=== PATIENT | female | born 1940 | race Caucasian/White ===

== ENCOUNTER → 2017-02-10 | Outpatient (CLI) | payer MEDICARE, MEDICAID | LOC: M WUC 08:47 | PROVIDERS: ATTEND Physician Assistant Medical | DX: R56.9 Unspecified convulsions (principal) ==

== ENCOUNTER → 2017-02-10 | Outpatient (CLI) | payer MEDICARE, MEDICAID ==
[2017-02-10 13:05] LABS: ALBUMIN/GLOBULIN RATIO 1.54 (1.00-1.93); BILIRUBIN,TOTAL 0.5 MG/DL (0.2-1.0); CALCIUM LEVEL 9.2 MG/DL (8.8-10.2); CREATININE FOR GFR 1.15 MG/DL (0.55-1.02); GLOMERULAR FILTRATION RATE 48.8 (>39); POTASSIUM SERUM 4.9 MEQ/L (3.5-5.1); TOTAL PROTEIN 6.6 GM/DL (6.4-8.2)
== END ==
LOC: M WUC 08:43
PROVIDERS: ATTEND Physician Assistant
DX: E03.9 Hypothyroidism, unspecified (principal); R56.9 Unspecified convulsions

== ENCOUNTER → 2017-04-25 | Outpatient (CLI) | payer MEDICARE, MEDICAID | LOC: M LAB 07:48 | PROVIDERS: ATTEND Psychiatry & Neurology Psychiatry | DX: Z51.81 Encounter for therapeutic drug level monitoring (principal); Z79.899 Other long term (current) drug therapy ==

== ENCOUNTER → 2017-04-26 | Outpatient (CLI) | payer MEDICARE, MEDICAID ==
[~2017-04-26] MED LIST: ASPI81TA85 PO; ATRO0.063 INH; CALC1CAP PO; CYMB60CA3 PO; DEBR6.5S4 AU; FLUC100T PO; FOSA70TA PO; KEPP1SOL PO; LACT10SO29 PO; NAPR250T45 PO; OMEP40CA2 PO; RISP1TAB42 PO; SYNT88TA2 PO; ZYRT10CA PO
--- NOTE | 2017-04-26 11:24 | REP ---
Clinical: Pain with recent trauma. Technique: Internal rotation, external rotation, and Y view. Findings: Advanced degenerative changes with increased sclerosis and blunting of the glenoid rim is appreciated along with subtle spurring along the inferior margin. The humeral head demonstrates mild subchondral heterogeneity and cystic change. The acromioclavicular joint appears intact and normal for age. The subacromial space is normal. No periarticular calcifications are identified. Impression: Early advanced degenerative changes involving the glenohumeral joint. No acute fracture or dislocation. Signed by Carlos Manuel Paulino MD 04/26/2017 11:16 A
== END ==
LOC: M LRY 10:05
PROVIDERS: ATTEND Family Medicine
DX: M19.012 Primary osteoarthritis, left shoulder (principal); M25.512 Pain in left shoulder; Z51.81 Encounter for therapeutic drug level monitoring; Z79.1 Long term (current) use of non-steroidal anti-inflammatories (NSAID)
CPT/HCPCS: 73030; 80048; G0463

== ENCOUNTER → 2017-04-26 | Outpatient (REF) | payer MEDICARE, MEDICAID ==
[2017-04-26 12:37] LABS: ANION GAP 7 MEQ/L (8-16); BLOOD UREA NITROGEN 20 MG/DL (7-18); CALCIUM LEVEL 8.7 MG/DL (8.8-10.2); CARBON DIOXIDE LEVEL 27 MEQ/L (21-32); CHLORIDE LEVEL 102 MEQ/L (98-107); CREATININE FOR GFR 0.77 MG/DL (0.55-1.02); GLOMERULAR FILTRATION RATE > 60.0 (>39); GLUCOSE, FASTING 81 MG/DL (83-110); SODIUM LEVEL 136 MEQ/L (136-145)
== END ==
LOC: M SFHCLERA 10:03
PROVIDERS: ATTEND Family Medicine
DX: Z79.1 Long term (current) use of non-steroidal anti-inflammatories (NSAID) (principal)

== ENCOUNTER 2017-06-13 09:48 | Outpatient (RCR) | payer MEDICARE, MEDICAID | END 2017-06-29 | disposition home or self-care (01) | LOC: M PT 09:48 | PROVIDERS: ATTEND Family Medicine | DX: Z51.89 Encounter for other specified aftercare (principal); M25.512 Pain in left shoulder | CPT/HCPCS: 97110; 97140; 97162; G8984; G8985 ==

== ENCOUNTER → 2017-06-28 | Outpatient (CLI) | payer MEDICARE, MEDICAID ==
[2017-06-28 08:47] LABS: EOS # 0.4 K/mm3 (0.0-0.50); EOS % 7.1 % (0.0-3.0); LARGE UNSTAINED CELL # 0.1 K/mm3 (0.0-0.4); LARGE UNSTAINED CELL % 1.4 % (0.0-4.0); LYMPH # 1.4 K/mm3 (1.5-4.5); LYMPH % 25.6 % (24.0-44.0); MEAN CORPUSCULAR HEMOGLOBIN 31.4 pg (27.0-33.0); MEAN CORPUSCULAR HGB CONC 32.9 g/dl (32.0-36.5); MEAN CORPUSCULAR VOLUME 95.6 fl (80.0-96.0); MONO # 0.2 K/mm3 (0.0-0.8); MONO % 4.2 % (0.0-5.0); NEUTROPHILS # 3.2 K/mm3 (1.8-7.7); NEUTROPHILS % 60.7 % (36.0-66.0); PLATELET COUNT, AUTOMATED 270 k/mm3 (150-450); RED CELL DISTRIBUTION WIDTH 13.4 % (11.5-14.5); WHITE BLOOD COUNT 5.2 K/mm3 (4.0-10.0)
--- NOTE | 2017-06-28 09:01 | REP ---
CT HEAD WITHOUT CONTRAST: HISTORY: Idiopathic epilepsy. COMPARISON: 04/13/2014 An area of decreased attenuation is present in the right basal ganglia. This represents an old lacunar infarction. Areas of decreased attenuation are present in the periventricular and subcortical white matter. This represents small vessel ischemic disease. There is no intraparenchymal hemorrhage, mass or midline shift. The ventricular system and cortical sulci as well as subarachnoid space in the posterior fossa are dilated consistent with moderate volume loss. There is no extracerebral collection. The visualized sinuses are clear. IMPRESSION: 1. Old right basal ganglia lacunar infarction. 2. Small vessel ischemic disease. 3. Moderate volume loss. Signed by Dwight Moore MD 06/28/2017 09:03 A
[2017-06-28 09:11] LABS: ERYTHROCYTE SEDIMENTATION RATE 6 mm/hr (0-30)
== END ==
LOC: M LAB 07:23 → M RAD 07:23
PROVIDERS: ATTEND Physician Assistant Medical
DX: G40.309 Generalized idiopathic epilepsy and epileptic syndromes, not intractable, without status epilepticus (principal); G31.84 Mild cognitive impairment of uncertain or unknown etiology; R25.8 Other abnormal involuntary movements; R93.0 Abnormal findings on diagnostic imaging of skull and head, not elsewhere classified

== ENCOUNTER 2017-07-22 11:24 | Emergency (ER) | payer MEDICARE, MEDICAID ==
[~2017-07-22] VITALS: Ht 162.6 cm; Wt 70.0 kg
[2017-07-22 11:26] VITALS: BP 118/59
[2017-07-22] MEDS ORDERED: NAPR250T45 PO (11:40)
[2017-07-22] MEDS ORDERED: DEBR6.5S4 AU (11:40)
[2017-07-22] MEDS ORDERED: KEPP1SOL PO (11:40)
[2017-07-22] MEDS ORDERED: LACT10SO29 PO (11:40)
[2017-07-22] MEDS ORDERED: ATRO0.063 INH (11:40)
[2017-07-22] MEDS ORDERED: OMEP40CA2 PO (11:40)
[2017-07-22] MEDS ORDERED: ASPI81TA85 PO (11:40)
[2017-07-22] MEDS ORDERED: CYMB60CA3 PO (11:40)
[2017-07-22] MEDS ORDERED: FOSA70TA PO (11:40)
[2017-07-22] MEDS ORDERED: CALC1CAP PO (11:40)
[2017-07-22] MEDS ORDERED: SYNT88TA2 PO (11:40)
[2017-07-22] MEDS ORDERED: ZYRT10CA PO (11:40)
[2017-07-22] MEDS ORDERED: RISP1TAB42 PO (11:40)
[2017-07-22] MEDS ORDERED: FLUC100T PO (11:40)
[2017-07-22] MEDS ORDERED: ACETAMINOPHEN 325 MG TAB As Ordered ONE (12:24)
[2017-07-22] MEDS ORDERED: ACETAMINOPHEN 325 MG TAB PO ONE (12:30)
--- NOTE | 2017-07-22 14:02 | REP ---
CT BRAIN WITHOUT CONTRAST: CT brain is performed without IV contrast. There is moderate atrophy. There is no midline shift. There are patchy periventricular chronic small vessel ischemic changes. There is no acute hemorrhage or extra-axial fluid collection. No mass effect is seen. There is no skull fracture. There are mild vascular calcifications in the carotid siphons. IMPRESSION: Chronic changes. No acute bleed or fracture. Signed by Fran Mckee MD 07/22/2017 07:40 P
--- NOTE | 2017-07-22 14:06 | REP ---
CT CERVICAL SPINE: CT cervical spine performed in the axial plane with sagittal and coronal reconstruction images. There is no compression fracture. There is no prevertebral soft tissue swelling. There is spurring of C5 through C7 with moderate intervening disc space narrowing. There is mild anterior listhesis of C4 on C5. These findings are stable compared to the prior CT of 05/13/2011. Posterior facet degenerative changes are seen diffusely with narrowing, subchondral sclerosis and cystic changes and spurring. These changes are seen most significantly at C3-4 and C4-5 facet joints. IMPRESSION: Degenerative changes. No evidence of acute fracture or dislocation. Signed by Fran Mckee MD 07/22/2017 07:40 P
--- NOTE | 2017-07-22 14:09 | REP ---
CT MAXILLOFACIAL BONES: CT maxillofacial bones performed in the axial plane with sagittal and coronal reconstruction images. COMPARISON: 05/13/2011 An old nasal bone fracture is again seen. No acute fracture is seen of the facial bones. Zygomatic arches are intact. A tiny amount of fluid is seen in the sphenoid sinus. Globes are intact. IMPRESSION: Old nasal bone fracture. No acute maxillofacial bone fracture seen. Tiny amount of fluid in the sphenoid sinus. Signed by Fran Mckee MD 07/22/2017 07:40 P
== END 2017-07-22 13:45 | disposition home or self-care (01) ==
LOC: M ED 11:24
DX: S01.512A Laceration without foreign body of oral cavity, initial encounter (principal); S00.33XA Contusion of nose, initial encounter; W05.0XXA Fall from non-moving wheelchair, initial encounter; Y92.199 Unspecified place in other specified residential institution as the place of occurrence of the external cause; Y93.9 Activity, unspecified; Y99.9 Unspecified external cause status; R56.9 Unspecified convulsions; F43.10 Post-traumatic stress disorder, unspecified; M51.9 Unspecified thoracic, thoracolumbar and lumbosacral intervertebral disc disorder; Z79.82 Long term (current) use of aspirin; Z79.899 Other long term (current) drug therapy; Z88.1 Allergy status to other antibiotic agents

== ENCOUNTER → 2017-08-12 | Outpatient (CLI) | payer MEDICARE, MEDICAID | LOC: M WUC 13:39 | PROVIDERS: ATTEND Family Medicine | DX: E03.9 Hypothyroidism, unspecified (principal) ==

== ENCOUNTER → 2017-09-06 | Outpatient (CLI) | payer MEDICARE, MEDICAID ==
--- NOTE | 2017-09-06 13:11 | REPMRS ---
Patient History The patient states she had a clinical breast exam in 08/2017. Patient is postmenopausal and is nulliparous. Benign stereotatic breast biopsy of the right breast, 2008. Digital Woman Screen Mammo: September 06, 2017 - Exam #: [id number] Bilateral CC and MLO view(s) were taken. Technologist: Lady Roque, Technologist Prior study comparison: June 03, 2016, digital woman screen mammo performed at [facility]. June 02, 2015, digital woman screen mammo performed at [facility]. May 27, 2014, digital woman screen mammo performed at [facility]. FINDINGS: There are scattered fibroglandular densities. There is a needle biopsy marker clip adjacent to a stable nodule in the superior medial quadrant of the right breast as before. There is a moderate amount of residual fibroglandular tissue which is fairly symmetric. There is no interval development of dominant mass, architectural distortion, or clustered microcalcification typical of malignancy. There has been no change in the appearance of the mammogram from the prior studies. ASSESSMENT: BI-RADS/ACR category 2 mammogram. Benign finding(s). Recommendation Routine screening mammogram of both breasts in 1 year (for women over age 40). This mammogram was interpreted with the aid of an FDA-approved computer-aided dectection system. Electronically Signed By: Frank Juarez MD 09/06/17 2004
== END ==
LOC: M WHC 10:15
PROVIDERS: ATTEND Nurse Practitioner Family
DX: Z12.31 Encounter for screening mammogram for malignant neoplasm of breast (principal); Z78.0 Asymptomatic menopausal state; Z92.89 Personal history of other medical treatment
CPT/HCPCS: G0202; G0463

== ENCOUNTER 2017-09-26 09:48 | Outpatient (RCR) | payer MEDICARE, MEDICAID | END 2017-09-28 | LOC: M PT 09:48 | PROVIDERS: ATTEND Family Medicine | DX: Z51.89 Encounter for other specified aftercare (principal); M25.511 Pain in right shoulder | CPT/HCPCS: 97140; 97162; G8984; G8985 ==

== ENCOUNTER 2017-10-03 09:51 | Outpatient (RCR) | payer MEDICARE, MEDICAID | END 2017-10-29 | LOC: M PT 09:51 | DX: Z51.89 Encounter for other specified aftercare (principal); M25.511 Pain in right shoulder | CPT/HCPCS: 97140 ==

== ENCOUNTER → 2017-10-11 | Outpatient (CLI) | payer MEDICARE, MEDICAID | LOC: M WUC 09:13 | PROVIDERS: ATTEND Family Medicine | DX: E03.9 Hypothyroidism, unspecified (principal) ==

== ENCOUNTER → 2017-11-02 | Outpatient (REF) | payer MEDICARE, MEDICAID ==
[2017-11-02 17:09] LABS: ALBUMIN 3.6 GM/DL (3.2-5.2); ALBUMIN/GLOBULIN RATIO 1.29 (1.00-1.93); ALKALINE PHOSPHATASE 146 U/L (45-117); ALT/SGPT 25 U/L (12-78); ANION GAP 6 MEQ/L (8-16); AST/SGOT 18 U/L (7-37); BILIRUBIN,TOTAL 0.3 MG/DL (0.2-1.0); BLOOD UREA NITROGEN 20 MG/DL (7-18); CALCIUM LEVEL 8.8 MG/DL (8.8-10.2); CARBON DIOXIDE LEVEL 31 MEQ/L (21-32); CHLORIDE LEVEL 105 MEQ/L (98-107); CREATININE FOR GFR 0.71 MG/DL (0.55-1.02); GLOMERULAR FILTRATION RATE > 60.0 (>39); GLUCOSE, FASTING 79 MG/DL (83-110); POTASSIUM SERUM 4.4 MEQ/L (3.5-5.1); SODIUM LEVEL 142 MEQ/L (136-145); TOTAL PROTEIN 6.4 GM/DL (6.4-8.2)
[2017-11-02 17:21] LABS: BASO # 0.1 10^3/uL (0.0-0.2); EOS # 0.2 10^3/uL (0.0-0.50); EOS % 3.6 % (0.0-3.0); HEMATOCRIT 36.4 % (36.0-47.0); HEMOGLOBIN 11.7 g/dl (12.0-16.0); IMMATURE GRANULOCYTE % 0.6 % (0-0); LYMPH # 1.2 10^3/uL (1.5-4.5); LYMPH % 23.7 % (24.0-44.0); MEAN CORPUSCULAR HEMOGLOBIN 30.5 pg (27.0-33.0); MEAN CORPUSCULAR HGB CONC 32.1 g/dl (32.0-36.5); MONO # 0.4 10^3/uL (0.0-0.8); MONO % 8.2 % (0.0-5.0); NEUTROPHILS # 3.1 10^3/uL (1.8-7.7); NEUTROPHILS % 62.9 % (36.0-66.0); PLATELET COUNT, AUTOMATED 268 10^3/uL (150-450); RED BLOOD COUNT 3.83 10^6/uL (4.00-5.40); RED CELL DISTRIBUTION WIDTH 12.9 % (11.5-14.5)
[2017-11-02 20:48] LABS: TOTAL 25(OH) VITAMIN D 51.6 NG/ML (30.0-100.0)
== END ==
LOC: M SFHCLERA 13:54
DX: R53.83 Other fatigue (principal); M81.0 Age-related osteoporosis without current pathological fracture; M19.019 Primary osteoarthritis, unspecified shoulder
CPT/HCPCS: 80053

== ENCOUNTER → 2018-01-16 | Outpatient (CLI) | payer MEDICARE, MEDICAID | LOC: M LRY 11:26 | DX: R56.9 Unspecified convulsions (principal) | CPT/HCPCS: 36415 ==

== ENCOUNTER → 2018-04-02 | Outpatient (CLI) | payer MEDICARE, MEDICAID ==
[2018-04-02 09:34] LABS: CHOLESTEROL LEVEL 184 MG/DL (<200); CHOLESTEROL RISK RATIO 3.118 (<5); GLUCOSE, FASTING 91 MG/DL (70-100); HDL CHOLESTEROL 59 MG/DL (>40); LDL CHOLESTEROL 106.6 MG/DL (<100); NON-HDL-C 125 MG/DL; TRIGLYCERIDES LEVEL 92 MG/DL (<150)
== END ==
LOC: M WUC 08:09
DX: Z79.899 Other long term (current) drug therapy (principal)
CPT/HCPCS: 82947

== ENCOUNTER → 2018-05-01 | Outpatient (CLI) | payer MEDICARE, MEDICAID ==
[2018-05-01 09:05] LABS: BASO % 0.9 % (0.0-1.0); EOS # 0.2 10^3/uL (0.0-0.50); EOS % 5.1 % (0.0-3.0); HEMOGLOBIN 12.3 g/dl (12.0-15.5); IMMATURE GRANULOCYTE % 0.5 % (0-3.0); LYMPH # 1.2 10^3/uL (1.5-4.5); LYMPH % 28.5 % (24.0-44.0); MEAN CORPUSCULAR HEMOGLOBIN 31.3 pg (27.0-33.0); MEAN CORPUSCULAR HGB CONC 33.2 g/dl (32.0-36.5); MEAN CORPUSCULAR VOLUME 94.1 fl (80.0-96.0); MONO # 0.3 10^3/uL (0.0-0.8); MONO % 7.9 % (0.0-5.0); NEUTROPHILS # 2.5 10^3/uL (1.8-7.7); NEUTROPHILS % 57.1 % (36.0-66.0); PLATELET COUNT, AUTOMATED 267 10^3/uL (150-450); RED BLOOD COUNT 3.93 10^6/uL (4.00-5.40); RED CELL DISTRIBUTION WIDTH 13.2 % (11.5-14.5); WHITE BLOOD COUNT 4.3 10^3/uL (4.0-10.0)
[2018-05-01 09:25] LABS: AMMONIA < 10 uMOL/L (<32)
[2018-05-01 09:33] LABS: TOTAL 25(OH) VITAMIN D 46.1 NG/ML (30.0-100.0)
[2018-05-01 09:34] LABS: FOLATE > 24.0 NG/ML; VITAMIN B12 LEVEL 737 PG/ML
[2018-05-01 09:39] LABS: ALBUMIN 3.9 GM/DL (3.2-5.2); ALKALINE PHOSPHATASE 137 U/L (45-117); ALT/SGPT 19 U/L (12-78); ANION GAP 10 MEQ/L (8-16); AST/SGOT 14 U/L (7-37); BILIRUBIN,TOTAL 0.4 MG/DL (0.2-1.0); BLOOD UREA NITROGEN 18 MG/DL (7-18); CARBON DIOXIDE LEVEL 29 MEQ/L (21-32); CHLORIDE LEVEL 104 MEQ/L (98-107); CREATININE FOR GFR 0.77 MG/DL (0.55-1.30); GLOMERULAR FILTRATION RATE > 60.0 (>39); GLUCOSE, FASTING 93 MG/DL (70-100); POTASSIUM SERUM 4.1 MEQ/L (3.5-5.1); SODIUM LEVEL 143 MEQ/L (136-145); TOTAL PROTEIN 6.5 GM/DL (6.4-8.2)
[2018-05-04 11:11] LABS: LEVETIRACETAM (KEPPRA) 23.6 ug/mL (10.0-40.0)
== END ==
LOC: M LAB 08:33
DX: R56.9 Unspecified convulsions (principal); R53.83 Other fatigue; R53.1 Weakness; Z79.899 Other long term (current) drug therapy
CPT/HCPCS: 82140

== ENCOUNTER 2018-06-05 10:50 | Outpatient (CLI) | payer MEDICARE, MEDICAID ==
[2018-06-05] MEDS ORDERED: MIDAZOLAM INJ 2 MG/2 ML VIAL (J2250) As Ordered (11:27)
[2018-06-05] MEDS ORDERED: LR 1,000 ML IV (12:30)
[2018-06-05] MEDS ORDERED: ONDANSETRON 4MG/2ML VIAL (J2405) IV (12:30)
== END 2018-06-05 12:56 | disposition home or self-care (01) ==
LOC: M SDC 10:50
DX: G31.9 Degenerative disease of nervous system, unspecified (principal); I67.81 Acute cerebrovascular insufficiency; G40.309 Generalized idiopathic epilepsy and epileptic syndromes, not intractable, without status epilepticus; R25.8 Other abnormal involuntary movements; R26.81 Unsteadiness on feet; M81.0 Age-related osteoporosis without current pathological fracture; K21.9 Gastro-esophageal reflux disease without esophagitis; M19.90 Unspecified osteoarthritis, unspecified site; E03.9 Hypothyroidism, unspecified; F79 Unspecified intellectual disabilities; F33.9 Major depressive disorder, recurrent, unspecified; F41.9 Anxiety disorder, unspecified; Z79.82 Long term (current) use of aspirin; Z79.899 Other long term (current) drug therapy; Z79.890 Hormone replacement therapy; Z88.1 Allergy status to other antibiotic agents; Z88.8 Allergy status to other drugs, medicaments and biological substances; Z98.890 Other specified postprocedural states; Z86.73 Personal history of transient ischemic attack (TIA), and cerebral infarction without residual deficits
CPT/HCPCS: 99156

== ENCOUNTER → 2018-06-14 | Outpatient (CLI) | payer MEDICARE, MEDICAID | LOC: M RAD 08:08 | DX: M51.34 Other intervertebral disc degeneration, thoracic region (principal); M51.36 Other intervertebral disc degeneration, lumbar region; M41.86 Other forms of scoliosis, lumbar region | CPT/HCPCS: 72072 ==

== ENCOUNTER 2018-06-19 09:02 | Outpatient (RCR) | payer MEDICARE, MEDICAID | END 2018-06-29 | LOC: M PT 09:02 | DX: Z51.89 Encounter for other specified aftercare (principal); M54.6 Pain in thoracic spine; M54.5 Low back pain | CPT/HCPCS: 97110 ==

== ENCOUNTER 2018-07-05 10:39 | Outpatient (RCR) | payer MEDICARE, MEDICAID | END 2018-07-29 | LOC: M PT 10:39 | DX: Z51.89 Encounter for other specified aftercare (principal); M54.5 Low back pain; M54.6 Pain in thoracic spine | CPT/HCPCS: 97110 ==

== ENCOUNTER 2018-09-17 07:52 | Emergency (ER) | payer MEDICARE, MEDICAID ==
[~2018-09-17] VITALS: Ht 162.6 cm; Wt 70.0 kg
[~2018-09-17 07:52] MED LIST changes: +ACET-683 PO; +INGR40CA PO; +MULT1TAB8 PO; -NAPR250T45 PO; +NAPR250T82 PO
[2018-09-17 08:48] LABS: BASO % 0.6 % (0.0-1.0); EOS # 0.2 10^3/uL (0.0-0.50); EOS % 2.8 % (0.0-3.0); HEMATOCRIT 38.8 % (36.0-47.0); HEMOGLOBIN 12.5 g/dl (12.0-15.5); LYMPH % 18.9 % (24.0-44.0); MEAN CORPUSCULAR HEMOGLOBIN 30.7 pg (27.0-33.0); MEAN CORPUSCULAR HGB CONC 32.2 g/dl (32.0-36.5); MEAN CORPUSCULAR VOLUME 95.3 fl (80.0-96.0); MONO # 0.4 10^3/uL (0.0-0.8); MONO % 6.7 % (0.0-5.0); NEUTROPHILS # 3.8 10^3/uL (1.8-7.7); NEUTROPHILS % 70.8 % (36.0-66.0); PLATELET COUNT, AUTOMATED 227 10^3/uL (150-450); RED BLOOD COUNT 4.07 10^6/uL (4.00-5.40); WHITE BLOOD COUNT 5.3 10^3/uL (4.0-10.0)
[2018-09-17 08:59] LABS: INR 1.06
[2018-09-17 09:17] LABS: BLOOD UREA NITROGEN 16 MG/DL (7-18); CALCIUM LEVEL 9.2 MG/DL (8.8-10.2); CARBON DIOXIDE LEVEL 26 MEQ/L (21-32); CHLORIDE LEVEL 107 MEQ/L (98-107); CPK CREATINE PHOSPHOKINASE 48 U/L (26-192); CREATININE FOR GFR 1.05 MG/DL (0.55-1.30); FREE T4 1.26 NG/DL (0.76-1.46); GLUCOSE, FASTING 129 MG/DL (70-100); MAGNESIUM LEVEL 2.2 MG/DL (1.8-2.4); POTASSIUM SERUM 4.3 MEQ/L (3.5-5.1); SODIUM LEVEL 139 MEQ/L (136-145); THYROID STIMULATING HORMONE 0.768 uIU/ML (0.358-3.740); TROPONIN I < 0.02 NG/ML (< 0.10)
--- NOTE | 2018-09-17 09:23 | REP ---
Clinical: Syncope. Comparison: 07/22/2017 . Findings: Age-related atrophy and microvascular ischemic changes are appreciated. The ventricles and sulci are symmetric. Mckee-white differentiation is maintained. There is no evidence for acute intracranial hemorrhage, mass/mass effect, pathology or infarction. No extra-axial fluid collection. Calvarium is intact. Paranasal sinuses and mastoid air cells are clear. Impression: Age related atrophy and microvascular ischemic changes. No acute intracranial hemorrhage, infarction, or mass/mass effect. Electronically Signed by Carlos Manuel Paulino MD 09/17/2018 09:14 A
--- NOTE | 2018-09-17 09:26 | REP ---
Clinical: Syncope/near-syncopal episode . Comparison: 04/12/2016 . Findings: The mediastinum and cardiac silhouette are stable and within normal limits for portable technique. The lung thorpe are clear without acute consolidation, effusion, or pneumothorax. Skeletal structures are intact. Impression: No acute cardiopulmonary process appreciated. Electronically Signed by Carlos Manuel Paulino MD 09/17/2018 09:17 A
--- NOTE | 2018-09-17 09:56 | ED PDOC ---
Post-Departure Follow-Up dr winn faxed formal report of cxr for fu Nikky Jackson MD Sep 17, 2018 09:56
[2018-09-17 15:10] LABS: CPK CREATINE PHOSPHOKINASE 43 U/L (26-192); MB/CK RELATIVE INDEX 3.26 (< OR =4); TROPONIN I < 0.02 NG/ML (< 0.10)
[2018-09-17 15:28] VITALS: BP 135/87
--- NOTE | 2018-09-17 15:58 | ECGEPIP ---
Stationary ECG Study [facility] - ED Test Date: 2018-09-17 Pat Name: RADHA ROCHA Department: Room: - Gender: F Foxer: : 1940 Requested By: Lorenza Salter Order Number: [id number] Reading MD: Jose Ramon Foreman Measurements Intervals [place] Rate: 52 P: 64 [place]: 175 QRS: 14 QRSD: 78 T: 40 QT: 376 QTc: 352 Interpretive Statements SINUS BRADYCARDIA NSTTW ABNORMALITIES SIMILAR TO 03/24/14 Electronically Signed On 09-17-2018 15:58:32 EST by Jose Ramon Foreman
--- NOTE | 2018-09-17 16:03 | ECGEPIP ---
Stationary ECG Study [facility] - ED Test Date: 2018-09-17 Pat Name: RADHA ROCHA Department: Room: - Gender: F Floor Clerk: : 1940 Requested By: Lorenza Salter Order Number: [id number] Reading MD: Jose Ramon Foreman Measurements Intervals [place] Rate: 64 P: 66 MO: 160 QRS: 38 QRSD: 86 T: 57 QT: 358 QTc: 372 Interpretive Statements SINUS RHYTHM NSTTW ABNORMALITIES SIMILAR TO PRIOR ON SAME DATE Electronically Signed On 09-17-2018 16:03:27 EST by Jose Ramon Foreman
== END 2018-09-17 15:31 | disposition home or self-care (01) ==
LOC: M ED 07:52 → EDBD 07:52 → M ED 15:31
DX: R55 Syncope and collapse (principal); E07.9 Disorder of thyroid, unspecified; Z86.718 Personal history of other venous thrombosis and embolism; Z87.891 Personal history of nicotine dependence

== ENCOUNTER → 2018-09-27 | Outpatient (CLI) | payer MEDICARE, MEDICAID ==
[2018-10-01 14:10] LABS: LEVETIRACETAM (KEPPRA) 41.2 ug/mL (10.0-40.0)
== END ==
LOC: M LRY 09:57
DX: R56.9 Unspecified convulsions (principal); Z51.81 Encounter for therapeutic drug level monitoring; Z79.899 Other long term (current) drug therapy
CPT/HCPCS: 80180

== ENCOUNTER → 2018-09-27 | Outpatient (REF) | payer MEDICARE, MEDICAID | LOC: M SFHCLERA 09:43 | DX: E03.9 Hypothyroidism, unspecified (principal) | CPT/HCPCS: 84443 ==

== ENCOUNTER → 2018-11-09 | Outpatient (CLI) | payer MEDICARE, MEDICAID ==
--- NOTE | 2018-11-27 02:19 | ECWPNPC ---
PATIENT NAME: RADHA ROCHA : 1940 GENDER: FEMALE VISIT DATE: 11/09/2018 DISCHARGE DATE: 11/09/18 1210 VISIT LOCKED DATE TIME: PHYSICIAN: RJ GARZA MD RESOURCE: RJ GARZA MD REASON FOR APPOINTMENT 1. BILAT SHOULDER PAIN HISTORY OF PRESENT ILLNESS FALL RISK SCREENING: SCREENING :NO FALLS IN THE PAST YEAR PAIN SCREENING: PATIENT HAS A COMPLAINT OF ACUTE OR CHRONIC PAIN :YES 78 YEAR OLD FEMALE PATIENT WITH A HISTORY OF CHRONIC THORACIC PAIN. THE PATIENT DESCRIBES THE PAIN ACHING AND CONTINUOUS WITH A PAIN SCORE OF 5-8/10 DEPENDING ON PHYSICAL ACTIVITY. THE PATIENT SAYS HER PAIN IS LOCATED MAINLY BETWEEN HER SHOULDER BLADES. THE PATIENT SAYS SHE HAS HAD THIS PAIN FOR MANY YEARS AND IT HAS WORSENED OVER TIME. THE PATIENT IS CURRENTLY A RESIDENT AT [facility]. PATIENT DENIES UNEXPLAINABLE WEIGHT LOSS, FEVER, CHILLS, NEW CHANGES ON HER URINARY OR BOWEL CONTROL. CURRENT MEDICATIONS TAKING MULTIVITAMINS 1 TABLET 1 TABLET ORALLY ONCE A DAY TAKING OXYGEN DIRECTED NASAL CANNULA NIGHTLY AND NEEDED TAKING TAB-A-BETTINA - TABLET TAKE ONE TABLET BY MOUTH ONCE DAILY ORALLY ONCE A DAY TAKING OXYGEN 2L NASAL CANNULA WHEN SLEEPING AND WITH AMBULATION DX:J44.9 TAKING DEBROX 6.5 % SOLUTION 4 GTT IN EACH EAR ONCE A MONTH FOR 3 NIGHTS IN A ROW TAKING MEDICAL COMPRESSION STOCKINGS - MISCELLANEOUS DIRECTED _ DAILY. 10-20MM TAKING CALCIUM ACETATE 668 (169 CA) MG TABLET 1 TABLET ORALLY TWICE A DAY TAKING WHEELCHAIR - MISCELLANEOUS MOLDED WHEELCHAIR PER THERAPIST SPECIFICATIONS DX CODES F70, M51.36, M81.0, M19.90, J44.9 TAKING FLUCONAZOLE 100 MG TABLET 2 TABLETS ORALLY ONCE A WEEK TAKING OXYGEN 2L VIA NASAL CANNULA AT NIGHT TAKING INGREZZA 40 MG CAPSULE 2 CAPS ORALLY ONCE A DAY TAKING CYMBALTA 60MG CAPSULE DELAYED RELEASE PARTICLES 1 CAPSULE ORALLY TWICE A DAY TAKING RISPERDAL 2 MG TABLET 1/2 TAB IN AM, 1 TAB AT BEDTIME ORALLY TAKING KEPPRA 100 MG/ML SOLUTION 5 ML ORALLY TWICE A DAY TAKING ZYRTEC 10 MG TABLET 1 TABLET ORALLY ONCE A DAY PRN FOR SNEEZING/CONGESTION TAKING LACTULOSE 10 GM/15ML SYRUP 15 ML ORALLY ONCE A DAY TAKING LEVOTHYROXINE SODIUM 88 MCG TABLET 1 TABLET ORALLY ONCE A DAY TAKING ASPIRIN 81 MG TABLET CHEWABLE 1 TABLET ORALLY ONCE A DAY TAKING TYLENOL 8 HOUR ARTHRITIS PAIN 650 MG TABLET EXTENDED RELEASE 1 TABLET ORALLY BID TAKING NAPROXEN 125 MG/5ML SUSPENSION 10 ML WITH FOOD OR MILK ORALLY TWICE A DAY MEDICATION LIST REVIEWED AND RECONCILED WITH THE PATIENT PAST MEDICAL HISTORY HYPOTHYROIDISM OSTEOPOROSIS MENTAL RETARDATION HALLUX VALGUS, RIGHT FOOT DEPRESSION/ANXIETY PASSIVE-AGGRESSIVE PERSONALITY DO DEGENERATIVE DISC DISEASE ARTHRITIS HX. OF DVT FX. RIGHT ANKLE/LEG-2013 ALLERGIES KEFLEX: HIVES: ALLERGY IBUPROFEN SURGICAL HISTORY THYROIDECTOMY BUNIONECTOMY/RIGHT 2007 BREAST BIOPSY/RIGHT/BENIGN FIBROADENOMA 2008 DENTAL EXTRACTIONS 07/06,09/05 FAMILY HISTORY NONCONTRIBUTORY. SOCIAL HISTORY GENERAL: TOBACCO USE ARE YOU A:: FORMER SMOKER , HOW LONG HAS IT BEEN SINCE YOU LAST SMOKED?: > 10 YEARS. LUNG CANCER SCREENING SMOKING STATUS:FORMER SMOKER IS THE PATIENT BETWEEN THE AGE OF 55 AND 77?YES HAVE YOU QUIT SMOKING WITHIN THE PAST 15 YEARS?YES HAS THE PATIENT EVER BEEN DIAGNOSED WITH LUNG CANCER?NO BMI CARE GOAL FOLLOW-UP ABOVE NORMAL BMI FOLLOW-UPDIETARY MANAGEMENT EDUCATION, GUIDANCE, AND COUNSELING ALCOHOL SCREENING DID YOU HAVE A DRINK CONTAINING ALCOHOL IN THE PAST YEAR?NO POINTS0 INTERPRETATIONNEGATIVE RECREATIONAL DRUG USE DRUG USE?NO CAFFEINE CAFFEINE USE?YES HOW OFTEN AND HOW MUCH? ONE CUP A DAY SEXUAL HX HAD SEX IN THE LAST 12 MONTHS (VAGINAL, ORAL, OR ANAL)?NO HAVE YOU EVER HAD AN STD?NO HIV / HEP-C SCREENING HIV TEST OFFERED TO PATIENT:NO HEP-C TEST OFFERED TO PATIENT:NO MORAVIAN [id number] NONE LANGUAGE LANGUAGES SPOKEN:QATARI LEARNING BARRIERS / SPECIAL NEEDS CHANGE FROM LAST VISIT?NO RADHA WILL COME TO APPOINTMENTS WITH [facility] STAFF BARRIERS TO LEARNING?YES HEARING IMPAIRED?NO VISION IMPAIRED?YES :CORRECTIVE LENSES COGNITIVELY IMPAIRED?YES READINESS TO LEARN?NO COMMENTSDOCUMENTED IN NOTES SECTION> LEARNING PREFERENCES?NO LEARNING CAPABILITIES PRESENT?NO EMOTIONAL BARRIERS?NO SPECIAL DEVICES?YES :WHEELCHAIR, OTHER VACUUM WORKER NEEDED?NO DIET: REGULAR. EXERCISE: NO REGULAR EXERCISE. MARITAL STATUS: SINGLE. PAIN CLINIC PFS, CLERGY, PUBLIC HEALTH REFERRALS HAS THE PATIENT BEEN EDUCATED REGARDING HIS/HER PLAN OF CARE?YES HAS THE PATIENT BEEN EDUCATED REGARDING PAIN, THE RISK FOR PAIN, THE IMPORTANCE OF EFFECTIVE PAIN MANAGEMENT, AND THE PAIN ASSESSMENT PROCESS?YES ADVANCE DIRECTIVE ADVANCE DIRECTIVE DISCUSSED WITH PATIENT:YES HAROON [place] BHAVESH BYRD REVIEWED WITH PT 11/09/18 1103 BV. HOSPITALIZATION/MAJOR DIAGNOSTIC PROCEDURE SURGERIES ABOVE REVIEW OF SYSTEMS REVIEWED BY: PROVIDER: RJ GARZA MD . CONSTITUTIONAL: ANY CHANGE IN YOUR MEDICAL CONDITION? NO . CHILLS NO . FEVER NO . INFECTION: DO YOU HAVE NEW INFECTIONS? NO . DO YOU HAVE HISTORY OF MRSA? NO . MUSCULOSKELETAL: ANY NEW PATTERNS OF PAIN OR NUMBNESS? NO . SYTEMIC LUPUS NO . GASTROENTEROLOGY: ANY NEW CHANGE IN BOWEL CONTROL? NO . BARRETTS ESOPHAGUS NO . CIRRHOSIS NO . HEPATITIS NO . LIVER FAILURE NO . ACID REFLUX NO . UNEXPLAINED WEIGHT LOSS NO . GENITOURINARY: ANY NEW CHANGE IN BLADDER CONTROL? NO . IS THERE A CHANCE YOU COULD BE ? NO . HEMATOLOGY/LYMPH: DO YOU TAKE ANY BLOOD THINNERS? (FOR EXAMPLE- COUMADIN, PLAVIX, AGGRENOX, PLATEL, PRADAXA, OR XARELTO) NO . WHEN WAS YOUR LAST DOSE? DATE: TIME: . LOW PLATELET COUNT NO . SICKLE CELL DISEASE NO . VON WILLIEBRANDS NO . FACTOR V LEIDEN NO . THALLASEMIA NO . ANEMIA NO . EASY BRUISING NO . NEUROLOGY: HAVE YOU FALLEN IN THE PAST 6 MONTHS? YES, PT IS UNABLE TO WALK. SHE HAS HAD 2 FALLS IN THE PAST 6 MONTHS DUE TO PT TRYING TO GET UP FROM HER WHEELCHAIR ALONE. NO INJURIES REPORTED. . ANY NEW EXTREMITY NUMBNESS OR WEAKNESS? NO . HEAD INJURY NO . DEMENTIA NO . CEREBRAL PALSY NO . MULTIPLE SCLEROSIS NO . DIZZINESS NO . HEADACHE NO . STROKES NO . VERTIGO NO . CARDIOLOGY: DO YOU HAVE A PACEMAKER OR DEFIBRILLATOR? NO . ANGINA NO . HEART ATTACK NO . HEART SURGERY NO . CONGESTIVE HEART FAILURE/FLUID OVERLOAD NO . CHEST PAIN NO . HIGH BLOOD PRESSURE NO . IRREGULAR HEART BEAT NO . RESPIRATORY: HAVE YOU BEEN SICK IN THE PAST WEEK? NO . FEVER NO . FLU LIKE SYMPTOMS? NO . CPAP NO . BYPAP NO . ASTHMA NO . EMPHYSEMA NO . CHRONIC LUNG DISEASES COPD, YES . SHORTNESS OF BREATH ON EXERTION NO . COUGH YES, DRY, RELATED TO ALLERGIES . SNORING NO . INTEGUMENTARY: DO YOU HAVE ANY RASHES OR OPEN SORES? NO . ALLERGIC/IMMUNO: ARE YOU ALLERGIC TO SHELLFISH OR IV DYE? NO . ANY NEW ALLERGIES? NO . PSYCHIATRIC: DO YOU HAVE THOUGHTS OF HURTING YOURSELF OR SOMEONE ELSE? NO . ARE YOU ABUSED, NEGLECTED, OR IN AN UNSAFE ENVIRONMENT? NO . ENDOCRINOLOGY: ARE YOU DIABETIC? NO . THYROID DISORDER HYPOTHYROID . OTHER: DO YOU NEED ANY PRESCRIPTIONS? NO . IF YES, PLEASE LIST: ____ . ANY NEW PROBLEMS WITH YOUR MEDICATIONS? NO . WHEN DID YOU LAST EAT? ____ . WHEN DID YOU LAST DRINK? ____ . WHAT DID YOU LAST DRINK? ____ . NAME OF PERSON DRIVING YOU HOME? ____ . DO YOU HAVE ANY OTHER QUESTIONS OR CONCERNS NO . VITAL SIGNS WT 131 LBS, HT 64 IN, BMI 22.48 INDEX, BP 135/64 MM HG, HR 68 /MIN, RR 20 /MIN, TEMP 98.4 F, OXYGEN SAT % 96%, NA INITIALS AW 1049, REVIEWED BY: BV. EXAMINATION GENERAL EXAMINATION: PATIENT IS ALERT O X 3 AND COOPERATIVE. LUNGS CLEAR, TO AUSCULTATION. HEART: NO MURMURS OR GALLOPS; FACIAL CRANIAL NERVES ARE GROSSLY NORMAL. GOOD SYMMETRY OF FACIAL MUSCLE MOVEMENT. NORMAL VISUAL LOVE. PATIENT IS IN A WHEELCHAIR AND HAS DIFFICULTIES AMBULATING. TENDERNESS OVER THE THORACIC FACET JOINTS. PRESENCE OF TRIGGER POINTS AND BANDS OF TISSUE WITH RESTRICTION OF MOVEMENT OF THE BACK. X-RAY OF THE THORACIC SPINE DONE ON 06/14/2018 SHOWS FACET ARTHROPATHY CHANGES AT MULTIPLE LEVELS. ASSESSMENTS MYALGIA, OTHER SITE - M79.18 (PRIMARY) THORACIC SPINE PAIN - M54.6 LUMBAR FACET ARTHROPATHY - M47.816 TREATMENT MYALGIA, OTHER SITE CLINICAL NOTES: WE DISCUSSED SEVERAL ISSUES WITH MRS. ROCHA'S PAIN MANAGEMENT CASE. I WOULD LIKE THE PATIENT TO START USING VOLTAREN GEL TO SEE IF THAT HELPS WITH HER PAIN RELIEF. DUE TO THE TRIGGER POINTS, BANDS OF TISSUE, AND RESTRICTION OF MOVEMENT, I WOULD LIKE TO MOVE FORWARD WITH A TRIGGER POINT INJECTION AT THIS TIME. WE DISCUSSED THE BENEFITS, RISKS, AND ALTERNATIVES OF THE INJECTION AND THE PATIENT WOULD LIKE TO PROCEED. THE PATIENT WILL CONSIDER A FACET BLOCK IN THE FUTURE. THE PATIENT WILL FOLLOW UP 3 WEEKS AFTER THE INJECTION. INSTRUCTIONS WERE GIVEN, QUESTIONS WERE ANSWERED, PATIENT REPORTS UNDERSTANDING AND AGREES WITH THE PLAN. I, WILVER OSEI, DOCUMENTED THE ABOVE INFORMATION ACTING A SCRIBE FOR DR. GARZA. I HAVE REVIEWED THE ABOVE DOCUMENT, WRITTEN BY WILVER ESCOBEDO AND I VERIFY THAT IT IS ACCURATE. DEAR DR. BECKER:THANK YOU FOR YOUR KIND REFERRAL OF MRS. ROCHA. IF YOU WANT TO DISCUSS HER CASE WITH ME PLEASE CALL ME AT THE PAIN CENTER AT [phone]. SINCERELY,RJ GARZA, [facility]. OTHERS START VOLTAREN GEL, 1 %, DIRECTED, TRANSDERMAL, EVERY 6 HOURS NEEDED, 30 DAY(S), 1, REFILLS 1 NOTES: TRIGGER POINT INJECTION MATERIAL WAS PRINTED, REVIEWED AND GIVEN TO PT. EM. PREVENTIVE MEDICINE PAIN CLINIC TEACHING: MEDICATIONS VOLTERN GEL INFORMATION HANDOUT PRINTED, REVIEWED AND GIVEN TO PT. EM. PROCEDURE CODES FA211 ESTABILISHED PATIENT [facility] FACILITY CHARGE [id number] CURRENT MEDS W/DOSAGES DOCUMENTED G8730 PAIN ASSESS POS TOOL F/U PLAN DOC DISPOSITION & COMMUNICATION FOLLOW UP 1 MONTH AFTER INJECTION (REASON: TPI- CONSENT BY PHONE) ELECTRONICALLY SIGNED BY RJ GARZA MD, MD ON 11/26/2018 AT 04:17 PM EST DISCLAIMER : THIS IS A VISIT SUMMARY EXTRACTED FROM THE [employer] CHART. IT IS NOT A COPY OF THE [employer] PROGRESS NOTE. MTDD
== END ==
LOC: M PAIN 10:30
PROVIDERS: ATTEND Anesthesiology
DX: M79.18 Myalgia, other site (principal); M54.6 Pain in thoracic spine; E03.9 Hypothyroidism, unspecified; J44.9 Chronic obstructive pulmonary disease, unspecified; M19.90 Unspecified osteoarthritis, unspecified site; F32.9 Major depressive disorder, single episode, unspecified; F41.9 Anxiety disorder, unspecified; F79 Unspecified intellectual disabilities; F60.89 Other specific personality disorders; Z79.82 Long term (current) use of aspirin; Z79.899 Other long term (current) drug therapy; Z88.6 Allergy status to analgesic agent; Z88.8 Allergy status to other drugs, medicaments and biological substances; Z86.79 Personal history of other diseases of the circulatory system; Z87.891 Personal history of nicotine dependence

== ENCOUNTER → 2018-11-16 | Outpatient (CLI) | payer MEDICARE, MEDICAID ==
[~2018-11-16] MED LIST changes: +BUPIVACAINE HCL 0.25% 10 ML VIAL As Ordered ONE; +BUPIVACAINE HCL 0.25% 30 ML VIAL As Ordered ONE; +TRIAMCINOLONE ACETONIDE SUSP 40 MG/ML VIAL (J3301) As Ordered ONE
--- NOTE | 2018-12-03 00:07 | ECWPNPC ---
PATIENT NAME: RADHA ROCHA : 1940 GENDER: FEMALE VISIT DATE: 11/16/2018 DISCHARGE DATE: 11/16/18 1140 VISIT LOCKED DATE TIME: PHYSICIAN: RJ GARZA MD RESOURCE: RJ GARZA MD REASON FOR APPOINTMENT 1. TPI HISTORY OF PRESENT ILLNESS HISTORY OF PRESENT ILLNESS: PAIN THE PATIENT DESCRIBES THE PAIN... FALL RISK SCREENING: SCREENING :NO FALLS IN THE PAST YEAR PAST MEDICAL HISTORY HYPOTHYROIDISM OSTEOPOROSIS MENTAL RETARDATION HALLUX VALGUS, RIGHT FOOT DEPRESSION/ANXIETY PASSIVE-AGGRESSIVE PERSONALITY DO DEGENERATIVE DISC DISEASE ARTHRITIS HX. OF DVT FX. RIGHT ANKLE/LEG-2013 ALLERGIES KEFLEX: HIVES: ALLERGY IBUPROFEN REVIEW OF SYSTEMS REVIEWED BY: PROVIDER: . CONSTITUTIONAL: ANY CHANGE IN YOUR MEDICAL CONDITION? NO . CHILLS NO . FEVER NO . INFECTION: DO YOU HAVE NEW INFECTIONS? NO . DO YOU HAVE HISTORY OF MRSA? NO . MUSCULOSKELETAL: ANY NEW PATTERNS OF PAIN OR NUMBNESS? NO . GASTROENTEROLOGY: ANY NEW CHANGE IN BOWEL CONTROL? NO . GENITOURINARY: ANY NEW CHANGE IN BLADDER CONTROL? NO . IS THERE A CHANCE YOU COULD BE ? NO . HEMATOLOGY/LYMPH: DO YOU TAKE ANY BLOOD THINNERS? (FOR EXAMPLE- COUMADIN, PLAVIX, AGGRENOX, PLATEL, PRADAXA, OR XARELTO) NO . WHEN WAS YOUR LAST DOSE? DATE: TIME: . NEUROLOGY: HAVE YOU FALLEN IN THE PAST 12 MONTHS? NO . ANY NEW EXTREMITY NUMBNESS OR WEAKNESS? NO . CARDIOLOGY: DO YOU HAVE A PACEMAKER OR DEFIBRILLATOR? NO . RESPIRATORY: HAVE YOU BEEN SICK IN THE PAST WEEK? NO . FEVER NO . FLU LIKE SYMPTOMS? NO . COUGH NO . INTEGUMENTARY: DO YOU HAVE ANY RASHES OR OPEN SORES? NO . ALLERGIC/IMMUNO: ARE YOU ALLERGIC TO IV DYE? NO . ANY NEW ALLERGIES? NO . PSYCHIATRIC: DO YOU HAVE THOUGHTS OF HURTING YOURSELF OR SOMEONE ELSE? NO . ARE YOU ABUSED, NEGLECTED, OR IN AN UNSAFE ENVIRONMENT? NO . ENDOCRINOLOGY: ARE YOU DIABETIC? NO . OTHER: DO YOU NEED ANY PRESCRIPTIONS? NO . IF YES, PLEASE LIST: ____ . ANY NEW PROBLEMS WITH YOUR MEDICATIONS? NO . WHEN DID YOU LAST EAT? 11/16/18629 . WHEN DID YOU LAST DRINK? 11/16/18629 . WHAT DID YOU LAST DRINK? PRUNE JUICE, COFFEE W CREAM . NAME OF PERSON DRIVING YOU HOME? CORRY . DO YOU HAVE ANY OTHER QUESTIONS OR CONCERNS NO . VITAL SIGNS WT 131 LBS, HT 64 IN, BMI 22.48 INDEX, BP 143/70 MM HG, HR 67 /MIN, RR 20 /MIN, TEMP 96.0 F, OXYGEN SAT % 96%, NA INITIALS AW 0921. ASSESSMENTS MYALGIA, OTHER SITE - M79.18 (PRIMARY) PROCEDURES PN TRIGGER POINT INJECTION WITH STEROIDS PRE PROCEDURE DIAGNOSIS 1. MYALGIA 2. PAIN AT BILATERAL LOW BACK AREA POST PROCEDURE DIAGNOSIS 1. MYALGIA 2. PAIN AT BILATERAL LOW BACK AREA PROCEDURE TRIGGER POINT INJECTION AT BILATERAL LOW BACK SURGEON DR. RJ GARZA SOFTBALL UMPIRE NONE ANESTHESIA LOCAL PRE PROCEDURE NOTE THE PATIENT HAS A HISTORY OF CHRONIC PAIN AT THE RIGHT AND LEFT LOW BACK AREA. I EVALUATE THE PATIENT AND REVIEWED THE CHART. THERE IS EVIDENCE OF BANDS OF TISSUE WITH RESTRICTION OF MOVEMENT AND PRESENCE OF TRIGGER POINT AT THE AFFECTED AREA. I WENT OVER THE RISKS, ALTERNATIVES, AND BENEFITS ASSOCIATED WITH THIS PROCEDURE. THE PATIENT WOULD LIKE TO PROCEED AND GIVE CONSENT TO PERFORMED THE PROCEDURE. THE PATIENT DENIES UNEXPLAINABLE WEIGHT LOSS, FEVER, CHILLS, OR NEW CHANGES IN URINARY OR BOWEL CONTROL DESCRIPTION OF PROCEDURE THE PATIENT WAS BROUGHT TO THE PROCEDURE ROOM AND PLACED IN THE SITTING POSITION. THE AREA WAS CLEANED WITH ALCOHOL. THE PROCEDURE WAS DONE USING [employer] STER[employer] TECHNIQUE. I CHECKED LATERALITY AND THE LEVEL WHERE THE PROCEDURE WAS GOING TO BE PERFORMED WITH THE PATIENT AND THE SUPPORTING STAFF AT THE MOMENT OF THE TIME OUT IN THE PROCEDURE ROOM. USING A 25-GAUGE NEEDLE, TRIGGER POINTS WERE INJECTED AT THE RIGHT AND LEFT LOW BACK AREA WITH A TOTAL OF 40 ML OF BUPIVACAINE 0.25% AND KENALOG 40 MG. THERE WAS NO EVIDENCE OF BLOOD, PARESTHESIA OR CEREBROSPINAL FLUID DURING THE PROCEDURE. THE PATIENT WAS SENT TO THE RECOVERY ROOM. THE PATIENT WAS MOVING THE EXTREMITIES AND DOING WELL. THERE WAS NO COMPLICATION DURING THE PROCEDURE POST PROCEDURE NOTE THE PATIENT WILL BE SEEN IN A FOLLOW UP IN THE NEXT FEW WEEKS. INSTRUCTIONS WERE GIVEN, QUESTIONS WERE ANSWERED, AND THE PATIENT EXPRESSED UNDERSTANDING AND AGREES WITH THE PLAN. I, WILVER OSEI, DOCUMENTED THE ABOVE INFORMATION ACTING A SCRIBE FOR DR. GARZA. I HAVE REVIEWED THE ABOVE DOCUMENT, WRITTEN BY WILVER ESCOBEDO AND I VERIFY THAT IT IS ACCURATE. PROCEDURE CODES 40943 INJ TRIGGER POINT 1/ MUSCL DISPOSITION & COMMUNICATION FOLLOW UP 3 WEEKS ELECTRONICALLY SIGNED BY RJ GARZA MD, MD ON 12/02/2018 AT 05:55 PM EST DISCLAIMER : THIS IS A VISIT SUMMARY EXTRACTED FROM THE [employer] CHART. IT IS NOT A COPY OF THE [employer] PROGRESS NOTE. JUSTINE
== END ==
LOC: M PAIN 09:00
PROVIDERS: ATTEND Anesthesiology
DX: M79.18 Myalgia, other site (principal); M54.5 Low back pain; E03.9 Hypothyroidism, unspecified; M19.90 Unspecified osteoarthritis, unspecified site; M81.0 Age-related osteoporosis without current pathological fracture; F32.9 Major depressive disorder, single episode, unspecified; F41.9 Anxiety disorder, unspecified; Z88.6 Allergy status to analgesic agent; Z88.8 Allergy status to other drugs, medicaments and biological substances; Z86.79 Personal history of other diseases of the circulatory system
CPT/HCPCS: 20552; J3301

== ENCOUNTER → 2018-12-15 | Outpatient (CLI) | payer MEDICARE, MEDICAID ==
[~2018-12-15] MED LIST changes: -BUPIVACAINE HCL 0.25% 10 ML VIAL As Ordered ONE; -BUPIVACAINE HCL 0.25% 30 ML VIAL As Ordered ONE; -TRIAMCINOLONE ACETONIDE SUSP 40 MG/ML VIAL (J3301) As Ordered ONE
== END ==
LOC: M LAB 08:57
PROVIDERS: ATTEND Physician Assistant Medical
DX: R56.9 Unspecified convulsions (principal)

== ENCOUNTER → 2019-02-15 | Outpatient (CLI) | payer MEDICARE, MEDICAID ==
--- NOTE | 2019-02-15 12:13 | REP ---
CHEST X-RAY: Five views. HISTORY: Supraclavicular fossa fullness. COMPARISON STUDY: September 17, 2018. April 12, 2016 prior study is also reviewed. FINDINGS: Five views are presented. Apparently, the patient had difficulty with positioning. There are clips in the soft tissues of the neck to the right of the trachea above the thoracic inlet. The thoracic aorta is tortuous. Heart is not enlarged. The lungs are symmetrically aerated and free of infiltrate. There are linear fibrotic changes in the right upper lobe anteriorly. These are unchanged from April 12, 2016 prior study. IMPRESSION: No active disease. Electronically Signed by Lupillo Juarez MD 02/15/2019 03:17 P
== END ==
LOC: M LRY 10:37
PROVIDERS: ATTEND Family Medicine
DX: R22.2 Localized swelling, mass and lump, trunk (principal)
CPT/HCPCS: 71046; G0463

== ENCOUNTER → 2019-02-21 | Outpatient (CLI) | payer MEDICARE, MEDICAID ==
--- NOTE | 2019-02-21 10:11 | REP ---
LEFT SUPRACLAVICULAR ULTRASOUND: Real-time sonographic evaluation of the left supraclavicular fossa performed to evaluate for possible palpable abnormality. There is reported swelling and fullness in this region. No cystic or solid mass is seen in this region. No sonographic abnormalities are seen. IMPRESSION: Negative sonography left supraclavicular fossa. No cystic or solid mass. Electronically Signed by Fran Mckee MD 02/21/2019 11:11 A
== END ==
LOC: M RAD 08:59
PROVIDERS: ATTEND Family Medicine
DX: R22.2 Localized swelling, mass and lump, trunk (principal)

== ENCOUNTER → 2019-06-12 | Outpatient (CLI) | payer MEDICARE, MEDICAID | LOC: M LAB 07:19 | PROVIDERS: ATTEND Physician Assistant Medical | DX: G40.909 Epilepsy, unspecified, not intractable, without status epilepticus (principal) ==